=== PATIENT | male | born 1930 | race Caucasian/White ===

== ENCOUNTER 2017-10-03 00:02 | Inpatient (IN) | payer OTHER, MEDICARE ==
[2017-10-03] MEDS ORDERED: MORPHINE SULFATE 10 MG/ML INJ IV ONE (00:17)
[2017-10-03] MEDS ORDERED: NORMAL SALINE 1000 ML 1,000 ML IV ONE (00:17)
[2017-10-03] MEDS ORDERED: ONDANSETRON HCL INJ/PF 4 MG/2 ML SDV IV ONE (00:17)
--- NOTE | 2017-10-03 00:18 | ER Document Report ---
ED GI/ - General Stated Complaint: NAUSEA,VOMITING Time Seen by Provider: 10/03/17 00:09 Notes: Patient is an 87-year-old male that comes by EMS from long-term care facility for chief complaint of swelling of the abdomen and vomiting. He states that he had not had a bowel movement recently, he was given stool softener and an enema by the facility and he had a small amount of bowel movement this afternoon as a result, he states however then he became very nauseated and vomited multiple times. He states he is not in a lot of pain right now but he still feels very nauseated. He denies fever. He denies blood in stool or vomit. He states he has had an appendectomy but denies any other abdominal surgeries. No history of bowel obstruction. - Related Data Allergies/Adverse Reactions: No Known Allergies Allergy (Unverified 10/03/17 00:25) Past Medical History - General Information source: Patient - Social History Smoking Status: Never Smoker Frequency of alcohol use: None Drug Abuse: None Lives with: [facility] Family History: Reviewed & Not Pertinent - Past Medical History Cardiac Medical History: Reports: Hx Atrial Fibrillation Renal/ Medical History: Reports: Hx Benign Prostatic Hyperplasia GI Medical History: Reports: Hx Gastroesophageal Reflux Disease Musculoskeltal Medical History: Reports Hx Arthritis, Reports Hx Musculoskeletal Deformity Infectious Medical History: Reports: Hx C-Diff Past Surgical History: Reports: Hx Appendectomy - Immunizations Hx Diphtheria, Pertussis, Tetanus Vaccination: Yes Review of Systems - Review of Systems Constitutional: No symptoms reported EENT: No symptoms reported Cardiovascular: No symptoms reported Respiratory: No symptoms reported Gastrointestinal: See HPI Genitourinary: No symptoms reported Male Genitourinary: No symptoms reported Musculoskeletal: No symptoms reported Skin: No symptoms reported Hematologic/Lymphatic: No symptoms reported Neurological/Psychological: No symptoms reported Physical Exam - Vital signs Vitals: Pulse Ox 95 10/03/17 00:53 - Notes Notes: GENERAL: Alert, interacts well. Patient appears uncomfortable but is not in severe distress HEAD: Normocephalic, atraumatic. EYES: Pupils equal, round, and reactive to light. Extraocular movements intact. ENT: Oral mucosa moist, tongue midline. NECK: Full range of motion. Supple. Trachea midline. LUNGS: Clear to auscultation bilaterally, no wheezes, rales, or rhonchi. No respiratory distress. HEART: Irregularly irregular. No tachycardia. ABDOMEN: Bowel sounds present, however abdomen is distended, there is generalized tenderness with no severe guarding. Right lower abdomen scar. EXTREMITIES: Moves all 4 extremities spontaneously. No edema, normal radial and dorsalis pedis pulses bilaterally. No cyanosis. BACK: no cervical, thoracic, lumbar midline tenderness. No saddle anesthesia, normal distal neurovascular exam. NEUROLOGICAL: Alert and oriented x3. Normal speech. [cranial nerves II through XII grossly intact]. PSYCH: Normal affect, normal mood. SKIN: Warm, dry, normal turgor. Wound VAC in place over the right thigh/ buttock. No noted surrounding erythema, tenderness, or abnormal heat. Course - Re-evaluation Re-evalutation: On initial evaluation patient has distended abdomen, generalized tenderness without rigidity or severe guarding, is alert, conversational, oriented. Vital signs are actually unremarkable. Patient does appear uncomfortable however. There is what appears to be old the urine in his Garcia, initial chemistry showing marked acute renal failure with creatinine greater than 5 and GFR of 10. Medical records are not merged but I was able to view a printout and showed normal creatinine in May of this year. Concern for obstructive uropathy like in the past, decision was made to replace Garcia, after Garcia was removed pus began to drain from the urethral opening, Garcia was placed and a large amount of purulent material began to flow after sensation of a pop/ pressure change with insertion of Garcia. An impressive amount of purulent drainage was expressed, initially 500 cc of pus, still flowing. Leukocytosis at 24,000 with elevation of neutrophils but no bandemia. Urine was initially pulled from the back unfortunately, a new sample was sent and culture. Covering with Zosyn. Acute abdominal series showing possible obstruction, NG tube placed, CAT scan performed, patient is too nauseated to drink contrast, he does feel improved after medications but states he cannot drink it. Performed without contrast to rule out obstructive stone and evaluate the belly. Hyperkalemia medications given. Patient was discussed with Dr. Quintero. CT showing dilation of small and large bowel, questionable ileus versus low- grade obstruction, patient has had a bowel movement earlier today. Called and spoke with Dr. Morris, he states he will consult on the patient. Spoke with Dr. Tapia, nephrology, he recommends admission with antibiotics and he will consult on the patient. Recommends Kayexalate dose. Patient needing additional access which is difficult to get, I placed a 20- gauge long IV in the right mid arm using the ultrasound. He now has two 20- gauge good access points. Spoke with Dr. García, pending admission to the ICU, request family be contacted and given options. 10/03/17 04:20 Spoke with Armida, daughter. She states she is comfortable with patient staying at this hospital, she prefers this, she states she is coming to see the patient now. She confirms that the patient is DNR status. Spoke with Dr. García, patient will be admitted to the ICU. Recommends adding troponin. - Vital Signs Vital signs: Temp Pulse Resp BP Pulse Ox 20 120/55 L 97 10/03/17 05:00 10/03/17 04:33 10/03/17 04:33 - Laboratory Result Diagrams: 10/03/17 00:45 10/03/17 00:45 Laboratory results interpreted by me: 10/03/17 10/03/17 10/03/17 00:45 00:45 00:45 WBC 24.1 H RBC 3.85 L Hgb 10.9 L Hct 33.1 L RDW 15.5 H Plt Count 567 H Seg Neuts % (Manual) 88 H Lymphocytes % (Manual) 7 L Abs Neuts (Manual) 21.2 H Sodium 133.7 L Potassium 6.1 H* Chloride 89 L BUN 61 H Creatinine 5.30 H Est GFR ( Amer) 12 L Est GFR (Non-Af Amer) 10 L Glucose 157 H Magnesium Direct Bilirubin 0.8 H Alkaline Phosphatase 159 H Albumin 3.0 L Urine Protein 100 H Urine Blood SMALL H Urine Nitrite POSITIVE H Ur Leukocyte Esterase LARGE H 10/03/17 10/03/17 00:45 02:30 WBC RBC Hgb Hct RDW Plt Count Seg Neuts % (Manual) Lymphocytes % (Manual) Abs Neuts (Manual) Sodium Potassium Chloride BUN Creatinine Est GFR ( Amer) Est GFR (Non-Af Amer) Glucose Magnesium 2.4 H Direct Bilirubin Alkaline Phosphatase Albumin Urine Protein 100 H Urine Blood MODERATE H Urine Nitrite Ur Leukocyte Esterase LARGE H Critical Care Note - Critical Care Note Total time excluding time spent on procedures (mins): 50 - Acute renal failure, hyperkalemia, obstructive uropathy, urinary tract infection, ileus Comments: Critical care time spent obtaining history from patient, discussions with consultants (nephrology, surgery, internal medicine), development of treatment plan with patient , evaluation of patient's response to treatment, examination of patient, ordering and performing treatments and interventions, ordering and review of laboratory studies, re-evaluation of patient's condition, ordering and review of radiographic studies and review of old charts Discharge - Discharge Clinical Impression: Hyperkalemia Acute renal failure Qualifiers: Acute renal failure type: unspecified Qualified Code(s): N17.9 - Acute kidney failure, unspecified Urinary tract infection Qualifiers: Urinary tract infection type: site unspecified Hematuria presence: without hematuria Qualified Code(s): N39.0 - Urinary tract infection, site not specified Condition: Serious Disposition: ADMITTED INPATIENT Admitting Provider: Hospitalist Unit Admitted: ICU
[2017-10-03 00:57] LABS: HEMATOCRIT 33.1 % (37.9-51.0); HEMOGLOBIN 10.9 g/dL (13.5-17.0); MEAN CORPUSCULAR HEMOGLOBIN 28.2 pg (27.0-33.4); MEAN CORPUSCULAR HGB CONC 32.8 g/dL (32.0-36.0); MEAN CORPUSCULAR VOLUME 86 fl (80-97); PLATELET COUNT 567 10^3/uL (150-450); RED BLOOD COUNT 3.85 10^6/uL (4.35-5.55); RED CELL DISTRIBUTION WIDTH 15.5 % (11.5-14.0); WHITE BLOOD COUNT 24.1 10^3/uL (4.0-10.5)
[2017-10-03 01:09] LABS: ALANINE AMINOTRANSFERASE 45 U/L (21-72); ALKALINE PHOSPHATASE 159 U/L (38-126); ANION GAP 18 (5-19); ASPARTATE AMINO TRANSFERASE 37 U/L (17-59); BILIRUBIN,DIRECT 0.8 mg/dL (0.0-0.4); BILIRUBIN,TOTAL 0.8 mg/dL (0.2-1.3); BLOOD UREA NITROGEN 61 mg/dL (7-20); CALCIUM 9.3 mg/dL (8.4-10.2); CARBON DIOXIDE 27 mmol/L (22-30); CHLORIDE 89 mmol/L (98-107); GLUCOSE 157 mg/dL (75-110); LIPASE 23.7 U/L (23-300); SODIUM 133.7 mmol/L (137-145); TOTAL PROTEIN 6.8 g/dL (6.3-8.2)
[2017-10-03 01:12] LABS: POTASSIUM 6.1 mmol/L (3.6-5.0)
[2017-10-03] MEDS ORDERED: CALCIUM GLUCONATE 1000 MG/10 ML INJ IV ONE (01:13)
[2017-10-03 01:14] LABS: ABSOLUTE LYMPHOCYTES# (MANUAL) 1.7 10^3/uL (0.5-4.7); ABSOLUTE MONOCYTES # (MANUAL) 1.2 10^3/uL (0.1-1.4); ABSOLUTE NEUTROPHILS# (MANUAL) 21.2 10^3/uL (1.7-8.2); BASOPHILS % (MANUAL) 0 % (0-2); EOSINOPHILS % (MANUAL) 0 % (0-6); LYMPHOCYTES % (MANUAL) 7 % (13-45); MONOCYTES % (MANUAL) 5 % (3-13); SEGMENTED NEUTROPHILS % (MAN) 88 % (42-78); TOTAL CELLS COUNTED 100
[2017-10-03] MEDS ORDERED: INSULIN REG, HUMAN 100 UNIT/ML 3 ML VIAL (PYX) IV ONE (01:14)
[2017-10-03] MEDS ORDERED: DEXTROSE 50%-WATER 25 GM/50 ML DISP.SYRIN IV ONE (01:14)
[2017-10-03 01:15] LABS: ANISOCYTOSIS SLIGHT; PLATELET COMMENT INCREASED; TOXIC GRANULATION SLIGHT
[2017-10-03] MEDS ORDERED: LIDOCAINE 1% INJ-PF (10 MG/ML) 30 ML SDV NEB ONE (01:36)
--- NOTE | 2017-10-03 01:37 | RADIOLOGY REPORT (SQ) ---
EXAM DESCRIPTION: US ABDOMEN ANEURYSM SCREENING COMPLETED DATE/TME: 10/03/2017 00:16 CLINICAL HISTORY: 87 years Male, abd distension, vomiting COMPARISON: 3.15.18 NUMBER OF VIEWS/TECHNIQUE: 3 LIMITATIONS: None. FINDINGS: Gaseous small and large bowel dilation includes small bowel stacking and 4.1 cm diameter small bowel. No free air. No suspicious calcification. Grossly intact skeletal structures. Small obscuration-effusion of the left costophrenic angle, chronic. Atherosclerosis. Mildly enlarged cardiac silhouette. Moderate lung volume. Moderate osteoarthritis. IMPRESSION: Small bowel ileus pattern. Differential diagnosis includes small bowel obstruction.
[2017-10-03 01:54] LABS: APPEARANCE,URINE TURBID; BILIRUBIN,URINE NEGATIVE (NEGATIVE); GLUCOSE, URINE NEGATIVE (NEGATIVE); KETONES,URINE NEGATIVE (NEGATIVE); LEUKOCYTE ESTERASE,URINE LARGE (NEGATIVE); NITRITE,URINE POSITIVE (NEGATIVE); PROTEIN,URINE 100 mg/dL (NEGATIVE); TRIPLE PHOSPHATE CRYSTAL,URINE MODERATE /HPF; URINE SPECIFIC GRAVITY 1.011; UROBILINOGEN,URINE NEGATIVE mg/dL (<2.0)
[2017-10-03 01:55] LABS: COLOR,URINE YELLOW
[2017-10-03] MEDS ORDERED: CEFTRIAXONE INJ 1000 MG VIAL IV ONE (02:33)
[2017-10-03] MEDS ORDERED: PIPERACILLIN/TAZOBACTAM 3.375 GM VIAL IV ONE (02:35)
[2017-10-03 03:10] LABS: APPEARANCE,URINE TURBID; BILIRUBIN,URINE NEGATIVE (NEGATIVE); COLOR,URINE YELLOW; GLUCOSE, URINE NEGATIVE (NEGATIVE); KETONES,URINE NEGATIVE (NEGATIVE); LEUKOCYTE ESTERASE,URINE LARGE (NEGATIVE); NITRITE,URINE NEGATIVE (NEGATIVE); PROTEIN,URINE 100 mg/dL (NEGATIVE); UROBILINOGEN,URINE NEGATIVE mg/dL (<2.0)
--- NOTE | 2017-10-03 03:21 | RADIOLOGY REPORT (SQ) ---
EXAM DESCRIPTION: CT ABDOMEN PELVIS WITHOUT IV CONTRAST CLINICAL HISTORY: 87 years Male, abd distension, kidney failure, ? obstruction Comparison: None. Technique: No contrast. Coronal and sagittal reformat. This exam was performed according to our departmental dose-optimization program, which includes automated exposure control, adjustment of the mA and/or kV according to patient size and/or use of iterative reconstruction technique.[facility]: Dose Right [facility]: CareDose [facility]: Dose Right [facility]: Teradose 4D [facility]: QuNano LIMITATIONS: None Findings: Moderate distention of the small and large bowel with possible transition zone at the splenic flexure. 3.5 cm diameter small bowel. Air-fluid levels. No free fluid. No free air. Small right basilar atelectasis-pneumonia. Calcified granuloma left lung base. Small bilateral pleural effusions. Atherosclerosis. Small calcified granulomata. Mild bilateral perinephric fat stranding. Garcia catheter. Moderate right inguinal fat only hernia. Lobulated hepatic contour which may indicate cirrhosis.Bone demineralization. Unenhanced lower thorax, abdominopelvic structures, and musculoskeleton appear otherwise grossly intact. Impression: 1. Moderate small and large bowel dilation with air-fluid levels. Differential diagnosis includes ileus and low-grade obstruction. 2. Small right basilar atelectasis-pneumonia.
[2017-10-03] MEDS ORDERED: NORMAL SALINE 1000 ML 1,000 ML IV PRN ×2 (03:31→09:59)
--- NOTE | 2017-10-03 03:51 | RADIOLOGY REPORT (SQ) ---
EXAM DESCRIPTION: XR CHEST 1 VIEW COMPLETED DATE/TME: 10/03/2017 03:29 CLINICAL HISTORY: 87 years Male, NG tube placement COMPARISON: CT, same day NUMBER OF VIEWS/TECHNIQUE: 1/AP FINDINGS: Enteric tube tip at the left upper abdominal quadrant, dilated bowel partially imaged, left basilar calcified granuloma, mildly enlarged cardiac silhouette. IMPRESSION: Enteric tube. Dilated bowel.
[2017-10-03] MEDS ORDERED: MAGNESIUM HYDROXIDE SUSP 30 ML UDCUP PO PRN (04:33)
[2017-10-03] MEDS ORDERED: ACETAMINOPHEN 650 MG SUPP.RECT PR PRN (04:33)
[2017-10-03] MEDS ORDERED: MAG HYDROX/AL HYDROX/SIMETH SUSP 30 ML UDCUP PO PRN (04:33)
[2017-10-03] MEDS ORDERED: IPRATROPIUM/ALBUTEROL 0.5-2.5 MG/3 ML AMPUL NEB ONE (04:45)
[2017-10-03] MEDS ORDERED: SODIUM POLYSTYRENE SULFONATE 15 GM/60 ML PO ONE (05:48)
[2017-10-03 06:55] LABS: ANION GAP 14 (5-19); BLOOD UREA NITROGEN 65 mg/dL (7-20); CARBON DIOXIDE 27 mmol/L (22-30); CHLORIDE 93 mmol/L (98-107); CREATINE KINASE 26 U/L (55-170); GLUCOSE 129 mg/dL (75-110); SODIUM 134.2 mmol/L (137-145)
--- NOTE | 2017-10-03 06:57 | PDOC H&P ---
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 Patient presents from nursing facility with complaints of abdominal distention nausea and vomiting. In the emergency room is found to have acute renal failure, abdominal distention and an empty Garcia, NG tube was placed to intermittent suction resulting in greater than 500 mL of aspiration, Garcia replacement results in drainage of greater than [address] abdomen and pelvis suggests pyelonephritis without hydronephrosis. He started on empiric antibiotics IV fluids and referred to the hospitalist for admission. He admits previous episode, he denies chest pain. He is unaware of his current medication regimen. Past Medical History Cardiac Medical History: Reports: Atrial Fibrillation, Hyperlipidema GI Medical History: Reports: Gastroesophageal Reflux Disease Musculoskeltal Medical History: Reports: Arthritis Infectious Medical History: Reports: Clostridium Difficile Past Surgical History Past Surgical History: Reports: Appendectomy Social History Information Source: [facility] Records Lives with: [facility] Smoking Status: Never Smoker Frequency of Alcohol Use: None Drugs: None - Advance Directive Resuscitation Status: Do Not Resuscitate Family History Family History: Hypertension Parental Family History Reviewed: Yes Children Family History Reviewed: Yes Sibling(s) Family History Reviewed.: Yes Medication/Allergy Allergies/Adverse Reactions: No Known Allergies Allergy (Unverified 10/03/17 00:25) Review of Systems Constitutional: PRESENT: as per HPI, anorexia, fatigue, weakness. ABSENT: chills, fever(s), headache(s), weight gain, weight loss Eyes: ABSENT: visual disturbances Ears: ABSENT: hearing changes Cardiovascular: ABSENT: chest pain, dyspnea on exertion, edema, orthropnea, palpitations Respiratory: ABSENT: cough, hemoptysis Gastrointestinal: PRESENT: as per HPI, abdominal pain, nausea, vomiting. ABSENT : constipation, diarrhea, hematemesis, hematochezia Genitourinary: ABSENT: dysuria, hematuria Musculoskeletal: ABSENT: joint swelling Integumentary: ABSENT: rash, wounds Neurological: ABSENT: abnormal gait, abnormal speech, confusion, dizziness, focal weakness, syncope Psychiatric: ABSENT: anxiety, depression, homidical ideation, suicidal ideation Endocrine: ABSENT: cold intolerance, heat intolerance, polydipsia, polyuria Hematologic/Lymphatic: ABSENT: easy bleeding, easy bruising Physical Exam Vital Signs: Temp Pulse Resp BP Pulse Ox 110 H 20 120/55 L 97 10/03/17 06:27 10/03/17 05:00 10/03/17 04:33 10/03/17 04:33 Intake & Output 10/01/17 10/02/17 10/03/17 11:59 11:59 11:59 Intake Total 650 Output Total 250 Balance 400 Weight 100.6 kg General appearance: PRESENT: cooperative, obese, severe distress Head exam: PRESENT: atraumatic, normocephalic Eye exam: PRESENT: conjunctiva pink, EOMI, PERRLA. ABSENT: scleral icterus Ear exam: PRESENT: normal external ear exam Mouth exam: PRESENT: dry mucosa, neck supple, tongue midline. ABSENT: moist Neck exam: ABSENT: carotid bruit, JVD, lymphadenopathy, thyromegaly Respiratory exam: PRESENT: clear to auscultation jose. ABSENT: rales, rhonchi, wheezes Cardiovascular exam: PRESENT: irregular rhythm. ABSENT: diastolic murmur, rubs , systolic murmur Pulses: PRESENT: normal dorsalis pedis pul Vascular exam: PRESENT: normal capillary refill GI/Abdominal exam: PRESENT: distended, hypoactive bowel sounds, soft, tenderness. ABSENT: rigid Rectal exam: PRESENT: deferred Extremities exam: PRESENT: full ROM. ABSENT: calf tenderness, clubbing, pedal edema Neurological exam: PRESENT: alert, awake, oriented to person, oriented to place , oriented to time, oriented to situation, CN II-XII grossly intact. ABSENT: motor sensory deficit Psychiatric exam: PRESENT: appropriate affect, normal mood. ABSENT: homicidal ideation, suicidal ideation Skin exam: PRESENT: dry, intact, warm, other - 3 x 3 cm stage IV sacral decubiti with necrotic exudate. ABSENT: cyanosis, rash Results Impressions: Acute Abdomen Series 10/03/17 00:16 IMPRESSION: Small bowel ileus pattern. Differential diagnosis includes small bowel obstruction. Chest X-Ray 10/03/17 03:29 IMPRESSION: Enteric tube. Dilated bowel. Assessment & Plan - Diagnosis (1) Pyelonephritis Is this a current diagnosis for this admission?: Yes Plan: Secondary to distal obstructive uropathy, urology consultation, empiric antibiotics, follow-up blood and urine culture (2) Obstructive uropathy Is this a current diagnosis for this admission?: Yes Plan: Urology consultation (3) Sacral decubitus ulcer, stage IV Is this a current diagnosis for this admission?: Yes Plan: Surgical consultation (4) Ileus Is this a current diagnosis for this admission?: Yes Plan: Secondary to #1, NG tube to intermittent suction, (5) Acute renal failure Qualifiers: Acute renal failure type: unspecified Qualified Code(s): N17.9 - Acute kidney failure, unspecified Is this a current diagnosis for this admission?: Yes Plan: Secondary to #1, avoid nephrotoxic meds and doses, IV fluid challenge, follow- up chemistry and nephrology consultation (6) Hyperkalemia Is this a current diagnosis for this admission?: Yes Plan: With peaked T waves, challenge IV fluid, reevaluate chemistry - Time Time Spent: 50 to 70 Minutes - Inpatient Certification Medical Necessity: Need Close Monitoring Due to Risk of Patient Decompensation
[2017-10-03] MEDS ORDERED: SODIUM POLYSTYRENE SULFONATE 15 GM/60 ML ONE (06:58)
[2017-10-03] MEDS: HEPARIN SOD (PORCINE) 5,000 UNIT/ML 1 ML SYRINGE SUBCUT SCH ×3 (06:59→21:57)
[2017-10-03 07:00] LABS: CREATINE KINASE MB 1.49 ng/mL (<4.55)
[2017-10-03 07:01] LABS: TROPONIN I < 0.012 ng/mL
[2017-10-03] MEDS: IPRATROPIUM/ALBUTEROL 0.5-2.5 MG/3 ML AMPUL NEB SCH ×3 (08:49→19:49)
[2017-10-03] MEDS ORDERED: CEFTRIAXONE 1 GM/D5W RTU 1 GM/50 ML RTUPB IV SCH (10:00)
--- NOTE | 2017-10-03 10:02 | PDOC CONSULTATION ---
Consultation Consult Date: 10/03/17 Consult reason:: AK I in the setting of obstructive uropathy. History of Present Illness Admission Date/PCP: 10/03/17 04:33 KRIILL RUBIN DO History of Present Illness: LAUREN CARTER is a 87 year old maleWith a history of prostatic hypertrophy and obstructive uropathy with chronic indwelling Garcia catheter [facility] was brought in with complaints of abdominal distention with nausea and vomiting.He denies any history of fever or chills. Evaluations have revealed that he had an obstructive Garcia catheter and after flushing the catheter 500 cc of purulent material came out.He denies any history of abdominal pains. CT scan done of his abdomen shows he has ileus and possible pyelonephritis.He has an NG tube placed and begun on IV antibiotics along with IV fluids.Currently he says he is feeling generally better. His Garcia bag shows still purulent material but according to the treating nurse it is clearing. Labs and medications were reviewed. His creatinine on admission was 5.8 and now is down to 4.3. His other baseline medical problems includes atrial fibrillation, stage IV sacral decubitus ulcer and GERD. Past Medical History Cardiac Medical History: Reports: Atrial Fibrillation, Hyperlipidemia Renal/ Medical History: Reports: Benign Prostatic Hyperplasia GI Medical History: Reports: Gastroesophageal Reflux Disease Musculoskeltal Medical History: Reports: Arthritis Infectious Medical History: Reports: Clostridium Difficile Past Surgical History Past Surgical History: Reports: Appendectomy Social History Lives with: [facility] Smoking Status: Never Smoker Frequency of Alcohol Use: None Drugs: None - Advance Directive Resuscitation Status: Do Not Resuscitate Family History Parental Family History Reviewed: No Children Family History Reviewed: No Sibling(s) Family History Reviewed.: No Medication/Allergy Allergies/Adverse Reactions: No Known Allergies Allergy (Unverified 10/03/17 00:25) Review of Systems Constitutional: PRESENT: anorexia, weakness. ABSENT: chills, fever(s), headache (s), night sweats Nose, Mouth, and Throat: ABSENT: mouth pain, sore throat Cardiovascular: ABSENT: chest pain, dyspnea on exertion, edema, orthropnea, palpitations Respiratory: ABSENT: dyspnea, hemoptysis Gastrointestinal: PRESENT: constipation, nausea, vomiting. ABSENT: abdominal pain, coffee ground emesis, diarrhea, dysphagia, heartburn Integumentary: ABSENT: lesions, pruritus Neurological: ABSENT: abnormal movements, confusion, convulsions, focal weakness Hematologic/Lymphatic: ABSENT: easy bruising, lymphadenopathy Physical Exam Vital Signs: Temp Pulse Resp BP Pulse Ox 97.5 F 85 20 110/53 L 100 10/03/17 08:00 10/03/17 08:49 10/03/17 08:49 10/03/17 08:00 10/03/17 08:49 Intake & Output 10/02/17 10/03/17 10/04/17 06:59 06:59 06:59 Intake Total 650 Output Total 150 175 Balance 500 -175 Weight 100.6 kg General appearance: PRESENT: no acute distress Eye exam: PRESENT: conjunctiva pink, EOMI, PERRLA Ear exam: PRESENT: normal external ear exam Mouth exam: PRESENT: neck supple. ABSENT: moist Neck exam: ABSENT: lymphadenopathy, meningismus, tenderness, thyromegaly, tracheal deviation Respiratory exam: PRESENT: clear to auscultation jose. ABSENT: crackles, rhonchi Cardiovascular exam: PRESENT: +S1, +S2 GI/Abdominal exam: PRESENT: normal bowel sounds, soft. ABSENT: organomegaly, tenderness Extremities exam: ABSENT: calf tenderness, clubbing, pedal edema Neurological exam: PRESENT: alert, awake, oriented to person, oriented to place , oriented to time Psychiatric exam: PRESENT: appropriate affect Skin exam: PRESENT: dry. ABSENT: cyanosis, erythema, mottled Results Laboratory Results: 10/03/17 06:25 10/03/17 10/03/17 06:25 06:25 Sodium 134.2 L Potassium 5.0 D Chloride 93 L Carbon Dioxide 27 Anion Gap 14 BUN 65 H Creatinine 4.89 H Est GFR ( Amer) 14 L Est GFR (Non-Af Amer) 11 L Glucose 129 H Lactic Acid 1.4 Calcium 9.0 10/03/17 10/03/17 06:25 06:25 Creatine Kinase 26 L CK-MB (CK-2) 1.49 Troponin I < 0.012 Impressions: Acute Abdomen Series 10/03/17 00:16 IMPRESSION: Small bowel ileus pattern. Differential diagnosis includes small bowel obstruction. Chest X-Ray 10/03/17 03:29 IMPRESSION: Enteric tube. Dilated bowel. Assessment & Plan - Diagnosis (1) Acute renal failure Qualifiers: Acute renal failure type: unspecified Qualified Code(s): N17.9 - Acute kidney failure, unspecified Is this a current diagnosis for this admission?: Yes Plan: in the face of obstructive uropathy with severe UTI/possible pyelonephritis. Patient has had a Garcia catheter flushed and has produced purulent material. Discussed with treating nurse to do bladder washes 2 every 6 hours.Continue on IV fluids but cut down the rate from 500 cc to 20 cc for 2 bags and then adjust the rate accordingly. I am unavailable till Friday. (2) Hyperkalemia Is this a current diagnosis for this admission?: Yes Plan: Responded to conservative management. Monitor. (3) Ileus Is this a current diagnosis for this admission?: Yes Plan: Currently has an NG tube. Further management as per hospitalist. (4) Obstructive uropathy Is this a current diagnosis for this admission?: Yes (5) Pyelonephritis Is this a current diagnosis for this admission?: Yes Plan: Possible. On IV antibiotics. Patient presently compensated. Hemodynamically stable. Continue present treatment along with intermittent bladder irrigation and washes. (6) Sacral decubitus ulcer, stage IV Is this a current diagnosis for this admission?: Yes Plan: As per hospitalist. (7) Urinary tract infection Qualifiers: Urinary tract infection type: site unspecified Hematuria presence: without hematuria Qualified Code(s): N39.0 - Urinary tract infection, site not specified Plan: On IV antibiotics. Monitor. Follow up on cultures. (8) Anemia Plan: Needs evaluation.
[2017-10-03] MEDS: DOCUSATE SODIUM 100 MG CAPSULE PO SCH (10:39)
[2017-10-03] MEDS ORDERED: PIPERACILLIN SODIUM/TAZOBACTAM 2.25 GM in NORMAL SALINE 50 ML IV SCH (12:00)
[2017-10-03] MEDS ORDERED: CEFTRIAXONE SODIUM 1,000 MG in DEXTROSE 5%-WATER 50 ML IV SCH (12:00)
--- NOTE | 2017-10-03 12:35 | PDOC CONSULTATION ---
Consultation Consult Date: 10/03/17 Attending physician:: MEE ODONNELL Consult reason:: obstruction History of Present Illness Admission Date/PCP: 10/03/17 04:33 KIRILL RUBIN DO History of Present Illness: LAUREN CARTER is a 87 year old male Past Medical History Cardiac Medical History: Reports: Atrial Fibrillation, Hyperlipidema GI Medical History: Reports: Gastroesophageal Reflux Disease Musculoskeltal Medical History: Reports: Arthritis Infectious Medical History: Reports: Clostridium Difficile Past Surgical History Past Surgical History: Reports: Appendectomy Social History Lives with: [facility] Smoking Status: Never Smoker Frequency of Alcohol Use: None Drugs: None - Advance Directive Resuscitation Status: Do Not Resuscitate Family History Family History: Hypertension Parental Family History Reviewed: No Children Family History Reviewed: No Sibling(s) Family History Reviewed.: No Medication/Allergy Allergies/Adverse Reactions: No Known Allergies Allergy (Unverified 10/03/17 00:25) Physical Exam Vital Signs: Temp Pulse Resp BP Pulse Ox 97.5 F 93 18 107/45 L 96 10/03/17 08:00 10/03/17 10:00 10/03/17 10:00 10/03/17 10:00 10/03/17 10:00 Intake & Output 10/02/17 10/03/17 10/04/17 06:59 06:59 06:59 Intake Total 650 Output Total 150 425 Balance 500 -425 Weight 100.6 kg Results Laboratory Results: 10/03/17 06:25 10/03/17 10/03/17 06:25 06:25 Sodium 134.2 L Potassium 5.0 D Chloride 93 L Carbon Dioxide 27 Anion Gap 14 BUN 65 H Creatinine 4.89 H Est GFR ( Amer) 14 L Est GFR (Non-Af Amer) 11 L Glucose 129 H Lactic Acid 1.4 Calcium 9.0 10/03/17 10/03/17 06:25 06:25 Creatine Kinase 26 L CK-MB (CK-2) 1.49 Troponin I < 0.012 Impressions: Acute Abdomen Series 10/03/17 00:16 IMPRESSION: Small bowel ileus pattern. Differential diagnosis includes small bowel obstruction. Chest X-Ray 10/03/17 03:29 IMPRESSION: Enteric tube. Dilated bowel. Assessment & Plan - Diagnosis (1) Pyelonephritis Is this a current diagnosis for this admission?: Yes Plan: i reviewed the CT and the blood work, also examined and interviewed the patient ; there is primary kidney disease, no evidence of obstruction by CT, the severino catheter is draining clear urine. the best way to treat urine retention for this patient is to do intermittent catheterization . apply bacitracin bid at tip of the penis
[2017-10-03 15:00] LABS: ANION GAP 11 (5-19); BLOOD UREA NITROGEN 63 mg/dL (7-20); CALCIUM 8.7 mg/dL (8.4-10.2); CARBON DIOXIDE 30 mmol/L (22-30); CHLORIDE 96 mmol/L (98-107); GLUCOSE 127 mg/dL (75-110); POTASSIUM 4.3 mmol/L (3.6-5.0); SODIUM 137.2 mmol/L (137-145)
[2017-10-03 15:13] LABS: CREATINE KINASE MB 1.87 ng/mL (<4.55)
[2017-10-03 15:16] LABS: TROPONIN I < 0.012 ng/mL
[2017-10-03] MEDS: NORMAL SALINE 1000 ML 1,000 ML IV PRN ×2 (16:05→18:18)
[2017-10-03] MEDS: MORPHINE SULFATE 10 MG/ML INJ IV PRN ×3 (16:05→23:02)
[2017-10-03] MEDS: CEFTRIAXONE SODIUM 1,000 MG in DEXTROSE 5%-WATER 50 ML IV SCH (17:31)
--- NOTE | 2017-10-03 21:44 | EKG REPORT ---
SEVERITY:- ABNORMAL ECG - ATRIAL FIBRILLATION, V-RATE 71-76 ABNRM R PROG, CONSIDER ASMI OR LEAD PLACEMENT BORDERLINE T ABNORMALITIES, INFERIOR LEADS : Confirmed by: Yanna Frazier MD 03-Oct-2017 21:44:04
--- NOTE | 2017-10-03 21:44 | EKG REPORT ---
SEVERITY:- ABNORMAL ECG - ATRIAL FIBRILLATION, V-RATE 74-100 ABNRM R PROG, CONSIDER ASMI OR LEAD PLACEMENT BORDERLINE T ABNORMALITIES, INFERIOR LEADS : Confirmed by: Yanna Frazier MD 03-Oct-2017 21:44:17
[2017-10-03 22:35] LABS: ANION GAP 13 (5-19); BLOOD UREA NITROGEN 61 mg/dL (7-20); CALCIUM 8.4 mg/dL (8.4-10.2); CARBON DIOXIDE 26 mmol/L (22-30); CHLORIDE 98 mmol/L (98-107); GLUCOSE 150 mg/dL (75-110); POTASSIUM 4.6 mmol/L (3.6-5.0); SODIUM 136.5 mmol/L (137-145)
[2017-10-03 22:46] LABS: CREATINE KINASE MB 2.58 ng/mL (<4.55)
[2017-10-03 22:52] LABS: TROPONIN I < 0.012 ng/mL
[2017-10-04] MEDS: NORMAL SALINE 1000 ML 1,000 ML IV PRN (00:14)
[2017-10-04] MEDS: IPRATROPIUM/ALBUTEROL 0.5-2.5 MG/3 ML AMPUL NEB SCH ×4 (02:36→19:58)
[2017-10-04] MEDS: HEPARIN SOD (PORCINE) 5,000 UNIT/ML 1 ML SYRINGE SUBCUT SCH ×3 (05:16→21:32)
[2017-10-04] MEDS: DOCUSATE SODIUM 100 MG CAPSULE PO SCH (09:14)
[2017-10-04] MEDS: MORPHINE SULFATE 10 MG/ML INJ IV PRN ×2 (09:22→20:02)
[2017-10-04] MEDS: DEXTROSE 5%-NORMAL SALINE 1,000 ML IV PRN ×2 (10:57→22:55)
--- NOTE | 2017-10-04 12:55 | PROGRESS NOTE E ---
Progress Note NAME: LAUREN CARTER : 1930 AGE: 87Y DATE: 10/04/2017 ROOM: 314 SUBJECTIVE: The patient is a pleasant 87-year-old male who has a history of benign prostatic hyperplasia, admitted with obstructive uropathy, he had a Nascimento catheter, atrial fibrillation with stage IV sacral decubiti, and bed bound. The patient was sent from nursing facility because of urinary retention, nausea, vomiting. He was found to have acute renal failure, abdominal distention, *------* Nascimento drained around 500 mL. The patient was started with gentle hydration and IV antibiotics. He is feeling much better today. His kidney function is better and his abdominal distention is better. OBJECTIVE: GENERAL: Patient is lying in bed comfortable, not in distress. VITAL SIGNS: Temperature 97.4, heart rate 81, respiratory rate 18, blood pressure 121/48. HEENT: Head is normocephalic, atraumatic. Pupils round, reactive to the light and accommodation bilaterally. Extraocular movements intact. Ears: Tympanic membranes are intact bilaterally. No discharge from the ears. No discharge from the nose. NECK: Supple. No increased JVD. No thyromegaly. No lymphadenopathy. CARDIOVASCULAR: Normal S1, S2. Regular rate and rhythm. No murmur. No gallop. RESPIRATORY: Lungs clear. ABDOMEN: Soft, nontender. MUSCULOSKELETAL: No edema. NEUROLOGIC: Awake, alert. SKIN: No rash. LABORATORY STUDIES: White blood count is 24, hemoglobin 11. Sodium 134, potassium 5.0, creatinine 4.9; it was 5.3. ASSESSMENT AND PLAN: 1. ACUTE RENAL FAILURE WITH CKD STAGE 3 SECONDARY TO OBSTRUCTIVE UROPATHY AND DEHYDRATION, IMPROVING. 2. OBSTRUCTIVE UROPATHY SECONDARY TO BENIGN PROSTATIC HYPERPLASIA, NASCIMENTO IN PLACE. 3. SACRAL DECUBITUS ULCER, STAGE IV. 4. URINARY TRACT INFECTION/PYELONEPHRITIS. 5. ILEUS, IMPROVING. PLAN: 1. Continue IV fluids. 2. Continue antibiotic ceftriaxone. 3. We will keep NG tube for another day. 4. Repeat abdominal/chest x-ray tomorrow morning. MEDICAL NECESSITY: IV fluids, and IV antibiotic. DICTATING PHYSICIAN: JANY BRAGA M.D. [id number] PHY#: [id number] ID: [id number] JOB#: [id number] ACCT: [id number] cc: > SHANEL
[2017-10-04] MEDS: CEFTRIAXONE SODIUM 1,000 MG in DEXTROSE 5%-WATER 50 ML IV SCH (17:39)
[2017-10-05] MEDS: IPRATROPIUM/ALBUTEROL 0.5-2.5 MG/3 ML AMPUL NEB SCH ×4 (02:36→19:57)
[2017-10-05 05:19] LABS: ABSOLUTE BASOPHILS # (AUTO) 0.2 10^3/uL (0.0-0.2); ABSOLUTE EOSINOPHILS # (AUTO) 0.7 10^3/uL (0.0-0.6); ABSOLUTE LYMPHOCYTES (AUTO) 2.7 10^3/uL (0.5-4.7); ABSOLUTE MONOCYTES (AUTO) 1.4 10^3/uL (0.1-1.4); ABSOLUTE NEUT (AUTO) 10.3 10^3/uL (1.7-8.2); BASOPHILS % (AUTO) 1.1 % (0-2); EOSINOPHILS % (AUTO) 4.5 % (0-6); HEMATOCRIT 28.9 % (37.9-51.0); HEMOGLOBIN 9.5 g/dL (13.5-17.0); LYMPHOCYTES % (AUTO) 17.7 % (13-45); MEAN CORPUSCULAR HEMOGLOBIN 28.4 pg (27.0-33.4); MEAN CORPUSCULAR HGB CONC 32.9 g/dL (32.0-36.0); MEAN CORPUSCULAR VOLUME 86 fl (80-97); MONOCYTES % (AUTO) 9.2 % (3-13); PLATELET COUNT 543 10^3/uL (150-450); RED BLOOD COUNT 3.35 10^6/uL (4.35-5.55); RED CELL DISTRIBUTION WIDTH 15.2 % (11.5-14.0); SEGMENTED NEUTROPHILS % (AUTO) 67.5 % (42-78); TOTAL CELLS COUNTED % (AUTO) 100 %; WHITE BLOOD COUNT 15.3 10^3/uL (4.0-10.5)
[2017-10-05] MEDS: HEPARIN SOD (PORCINE) 5,000 UNIT/ML 1 ML SYRINGE SUBCUT SCH ×3 (05:23→21:07)
[2017-10-05 05:53] LABS: ALBUMIN 2.2 g/dL (3.5-5.0); ANION GAP 9 (5-19); BLOOD UREA NITROGEN 40 mg/dL (7-20); CALCIUM 8.1 mg/dL (8.4-10.2); CARBON DIOXIDE 27 mmol/L (22-30); CHLORIDE 104 mmol/L (98-107); GLUCOSE 94 mg/dL (75-110); PHOSPHORUS 3.3 mg/dL (2.5-4.5); POTASSIUM 3.4 mmol/L (3.6-5.0); SODIUM 139.9 mmol/L (137-145)
[2017-10-05] MEDS: DEXTROSE 5%-NORMAL SALINE 1,000 ML IV PRN ×2 (07:49→17:39)
--- NOTE | 2017-10-05 08:43 | RADIOLOGY REPORT (SQ) ---
EXAM DESCRIPTION: ABDOMEN 2 VIEWS COMPLETED DATE/TIME: 10/05/2017 8:26 am REASON FOR STUDY: Abdominal pain COMPARISON: 10/03/2017. NUMBER OF VIEWS: Two views. TECHNIQUE: Supine and erect/decubitus radiographic images of the abdomen acquired. LIMITATIONS: None. FINDINGS: FREE AIR: None. No abnormal gas collections. LUNG BASES: Diminished aeration left lung base. BOWEL GAS PATTERN: Mild gaseous distension, slightly improved compared to prior. Relatively nonobstr uctive but nonspecific pattern. CALCIFICATIONS: Phleboliths in the pelvis. SOFT TISSUES: No gross mass. HARDWARE: Garcia catheter in place. BONES: No acute fracture. No worrisome bone lesions. OTHER: No other significant finding. IMPRESSION: 1. Slightly improved gaseous distention in the abdomen. 2. Worsening aeration left low er lobe. TECHNICAL DOCUMENTATION: JOB ID: [id number] [employer]- All Rights Reserved Reading location - IP/workstation name: [email or web address]
[2017-10-05] MEDS: DOCUSATE SODIUM 100 MG CAPSULE PO SCH (11:24)
--- NOTE | 2017-10-05 11:45 | PROGRESS NOTE E ---
Progress Note NAME: LAUREN CARTER : 1930 AGE: 87Y DATE: 10/05/2017 ROOM: 314 SUBJECTIVE: The patient is a pleasant 87-year-old male who has a history of benign prostatic hyperplasia, admitted with obstructive uropathy, sepsis and atrial fibrillation with stage IV decubitus ulcer. Patient also has acute renal failure secondary to obstructive uropathy. He is improving today. He was found to have also small bowel obstruction and NG tube was placed. The patient removed NG tube yesterday/last night. Repeat chest x-ray showed improvement of ileus. Patient is doing better today. Slightly confused. OBJECTIVE: GENERAL: Patient is lying in bed comfortable, not in distress. VITAL SIGNS: Blood pressure 142/65, temperature 97.4, heart rate 85, respiratory rate 16, saturation 97%. HEENT: Head is normocephalic, atraumatic. Pupils round, reactive to the light and accommodation bilaterally. Extraocular movements intact. Ears: Tympanic membranes are intact bilaterally. No discharge from the ears. No discharge from the nose. NECK: Supple. No increased JVD. No thyromegaly. No lymphadenopathy. CARDIOVASCULAR: Normal S1, S2. Regular rate and rhythm. No murmur. No gallop. RESPIRATORY: Lungs clear. ABDOMEN: Soft. MUSCULOSKELETAL: No edema. NEUROLOGIC: Awake, alert. SKIN: No rash. LABORATORY STUDIES: White blood count is 15.3, hemoglobin 9.5, hematocrit 28.9. Sodium 139, potassium 3.4, creatinine 1.6. ASSESSMENT AND PLAN: 1. ACUTE RENAL FAILURE WITH CKD STAGE III SECONDARY TO OBSTRUCTIVE UROPATHY, RESOLVING. Creatinine is 1.3. 2. OBSTRUCTIVE UROPATHY SECONDARY TO BENIGN PROSTATIC HYPERPLASIA, NASCIMENTO IN PLACE. 3. URINARY TRACT INFECTION/PYELONEPHRITIS. On antibiotics. 4. SACRAL DECUBITUS ULCER, STAGE IV. 5. ILEUS, IMPROVING. PLAN: 1. Continue IV fluids. Will decrease the rate. 2. Continue antibiotic ceftriaxone 1 g IV daily. 3. The NG tube was removed by the patient. Will keep the NG tube out. 4. Liquid diet. Repeat chest x-ray showed improvement of ileus. 5. Put him also on Flomax and remove the Nascimento catheter and voiding trial. DISPOSITION: Back to care home probably Friday or [place]. DICTATING PHYSICIAN: JANY BRAGA M.D. [id number] PHY#: [id number] ID: [id number] JOB#: [id number] ACCT: [id number] cc: > MTDD
[2017-10-05] MEDS: CEFTRIAXONE SODIUM 1,000 MG in DEXTROSE 5%-WATER 50 ML IV SCH (17:39)
[2017-10-05] MEDS ORDERED: DEXTROSE 5%-NORMAL SALINE 1,000 ML IV PRN (20:03)
[2017-10-06] MEDS ORDERED: TEMAZEPAM 7.5 MG CAPSULE PO PRN (01:15)
[2017-10-06] MEDS: IPRATROPIUM/ALBUTEROL 0.5-2.5 MG/3 ML AMPUL NEB SCH ×2 (01:38→08:27)
[2017-10-06 05:32] LABS: ABSOLUTE BASOPHILS # (AUTO) 0.2 10^3/uL (0.0-0.2); ABSOLUTE EOSINOPHILS # (AUTO) 0.4 10^3/uL (0.0-0.6); ABSOLUTE LYMPHOCYTES (AUTO) 2.5 10^3/uL (0.5-4.7); ABSOLUTE MONOCYTES (AUTO) 1.3 10^3/uL (0.1-1.4); ABSOLUTE NEUT (AUTO) 9.6 10^3/uL (1.7-8.2); BASOPHILS % (AUTO) 1.1 % (0-2); EOSINOPHILS % (AUTO) 2.9 % (0-6); HEMATOCRIT 29.4 % (37.9-51.0); HEMOGLOBIN 9.6 g/dL (13.5-17.0); LYMPHOCYTES % (AUTO) 17.6 % (13-45); MEAN CORPUSCULAR HEMOGLOBIN 28.3 pg (27.0-33.4); MEAN CORPUSCULAR HGB CONC 32.5 g/dL (32.0-36.0); MEAN CORPUSCULAR VOLUME 87 fl (80-97); MONOCYTES % (AUTO) 9.6 % (3-13); PLATELET COUNT 483 10^3/uL (150-450); RED BLOOD COUNT 3.37 10^6/uL (4.35-5.55); RED CELL DISTRIBUTION WIDTH 15.2 % (11.5-14.0); SEGMENTED NEUTROPHILS % (AUTO) 68.8 % (42-78); TOTAL CELLS COUNTED % (AUTO) 100 %; WHITE BLOOD COUNT 13.9 10^3/uL (4.0-10.5)
[2017-10-06] MEDS: HEPARIN SOD (PORCINE) 5,000 UNIT/ML 1 ML SYRINGE SUBCUT SCH ×3 (06:06→21:24)
[2017-10-06 07:15] LABS: ALBUMIN 2.3 g/dL (3.5-5.0); ANION GAP 10 (5-19); BLOOD UREA NITROGEN 28 mg/dL (7-20); CALCIUM 8.1 mg/dL (8.4-10.2); CARBON DIOXIDE 25 mmol/L (22-30); CHLORIDE 104 mmol/L (98-107); GLUCOSE 87 mg/dL (75-110); PHOSPHORUS 2.9 mg/dL (2.5-4.5); POTASSIUM 3.3 mmol/L (3.6-5.0); SODIUM 139.4 mmol/L (137-145)
--- NOTE | 2017-10-06 07:26 | EKG REPORT ---
SEVERITY:- ABNORMAL ECG - ATRIAL FIBRILLATION, V-RATE 109-115 OLD ANTERIOR NM : Confirmed by: Simon Galvin MD 06-Oct-2017 07:25:05
[2017-10-06] MEDS: DOCUSATE SODIUM 100 MG CAPSULE PO SCH (10:16)
[2017-10-06] MEDS ORDERED: IPRATROPIUM/ALBUTEROL 0.5-2.5 MG/3 ML AMPUL NEB PRN (10:23)
[2017-10-06] MEDS ORDERED: GLYCERIN (ADULT) SUPP.RECT PR PRN (10:23)
[2017-10-06] MEDS ORDERED: DILTIAZEM HCL INJ 25 MG/5 ML VIAL IV ONE (10:30)
[2017-10-06] MEDS ORDERED: (PENDING PHARMACY ID) (Lisinopril [Zestril] 40 MG) PO SCH (10:30)
[2017-10-06] MEDS ORDERED: LEVALBUTEROL HCL NEB 1.25 MG/3 ML AMPUL NEB PRN (10:44)
[2017-10-06] MEDS ORDERED: HYDRALAZINE HCL INJ/PF 20 MG/1 ML SDV IV PRN (10:46)
[2017-10-06] MEDS ORDERED: LISINOPRIL 10 MG TABLET PO ONE (12:00)
[2017-10-06] MEDS: DILTIAZEM HCL 30 MG TABLET PO SCH ×3 (12:42→23:39)
[2017-10-06] MEDS ORDERED: CIPROFLOXACIN 200 MG/D5W RTU 200 MG/100 ML RTUPB IV ONE (13:00)
--- NOTE | 2017-10-06 13:26 | EKG REPORT ---
SEVERITY:- ABNORMAL ECG - ATRIAL FIBRILLATION, V-RATE 86-146 LOW VOLTAGE IN FRONTAL LEADS BORDERLINE R WAVE PROGRESSION, ANTERIOR LEADS REPOLARIZATION ABNORMALITY, PROB RATE RELATED : Confirmed by: Simon Galvin MD 06-Oct-2017 13:26:16
[2017-10-06] MEDS: IPRATROPIUM BROMIDE 0.02% NEB 0.5 MG/2.5 ML AMPUL NEB SCH ×2 (14:16→20:40)
[2017-10-06] MEDS: LEVALBUTEROL HCL NEB 1.25 MG/3 ML AMPUL NEB SCH ×2 (14:16→20:40)
[2017-10-06] MEDS: TAMSULOSIN HCL 0.4 MG CAP.SR.24H PO SCH (17:52)
--- NOTE | 2017-10-06 20:51 | PDOC PROGRESS REPORT ---
Subjective Progress Note for:: 10/06/17 Subjective:: Pseudomonas grew in the urine. Change antibiotics to ciprofloxacin. Will need to change Garcia in the near future after antibiotics have been loaded. Will schedule patient on diltiazem for his uncontrolled atrial fibrillation rate at present approximately around 120. Sitter anticoagulation in this patient. She was described as relatively bedbound in his retirement facility. Will get physical therapy's evaluation. Reason For Visit: ARF PYELONEPHRITIS, BPH W OBST, HYPERKALEMIA Physical Exam Vital Signs: Temp Pulse Resp BP Pulse Ox 98.1 F 114 H 17 130/51 H 96 10/06/17 20:17 10/06/17 20:17 10/06/17 20:17 10/06/17 20:17 10/06/17 20:17 Intake & Output 10/05/17 10/06/17 10/07/17 06:59 06:59 06:59 Intake Total 3733 3912 1463 Output Total 2350 2625 700 Balance 1383 1287 763 Weight 108 kg 110.6 kg General appearance: PRESENT: no acute distress, morbidly obese Head exam: PRESENT: atraumatic, normocephalic Eye exam: PRESENT: EOMI, PERRLA. ABSENT: nystagmus Ear exam: PRESENT: normal external ear exam. ABSENT: bleeding Mouth exam: PRESENT: moist, neck supple Throat exam: ABSENT: tonsillar exudate, tonsillogmegaly Neck exam: ABSENT: tenderness, thyromegaly, tracheal deviation Respiratory exam: ABSENT: rales, stridor, wheezes Cardiovascular exam: PRESENT: irregular rhythm, +S1, +S2, tachycardia. ABSENT: RRR Pulses: PRESENT: normal radial pulses, normal dorsalis pedis pul GI/Abdominal exam: PRESENT: normal bowel sounds, soft. ABSENT: diminished bowel sounds, rigid Extremities exam: ABSENT: calf tenderness, clubbing, joint swelling Musculoskeletal exam: PRESENT: full ROM, normal inspection. ABSENT: ambulatory Neurological exam: PRESENT: alert, oriented to person, oriented to place, oriented to time Psychiatric exam: ABSENT: agitated, flat affect Focused psych exam: ABSENT: delusional, flight of ideas, pressured speech Skin exam: PRESENT: normal color. ABSENT: mottled Results Laboratory Results: 10/06/17 04:52 10/06/17 04:52 10/06/17 10/06/17 04:52 04:52 WBC 13.9 H RBC 3.37 L Hgb 9.6 L Hct 29.4 L MCV 87 MCH 28.3 MCHC 32.5 RDW 15.2 H Plt Count 483 H Seg Neutrophils % 68.8 Lymphocytes % 17.6 Monocytes % 9.6 Eosinophils % 2.9 Basophils % 1.1 Absolute Neutrophils 9.6 H Absolute Lymphocytes 2.5 Absolute Monocytes 1.3 Absolute Eosinophils 0.4 Absolute Basophils 0.2 Sodium 139.4 Potassium 3.3 L Chloride 104 Carbon Dioxide 25 Anion Gap 10 BUN 28 H Creatinine 1.08 Est GFR ( Amer) > 60 Est GFR (Non-Af Amer) > 60 Glucose 87 Calcium 8.1 L Phosphorus 2.9 Magnesium 1.7 Albumin 2.3 L 10/03/17 10/03/17 10/03/17 06:25 06:25 14:15 Creatine Kinase 26 L 33 L CK-MB (CK-2) 1.49 Troponin I < 0.012 10/03/17 10/03/17 10/03/17 14:15 22:00 22:00 Creatine Kinase 47 L CK-MB (CK-2) 1.87 2.58 Troponin I < 0.012 < 0.012 Impressions: Acute Abdomen Series 10/03/17 00:16 IMPRESSION: Small bowel ileus pattern. Differential diagnosis includes small bowel obstruction. Chest X-Ray 10/03/17 03:29 IMPRESSION: Enteric tube. Dilated bowel. Abdomen X-Ray 10/05/17 08:00 IMPRESSION: 1. Slightly improved gaseous distention in the abdomen. 2. Worsening aeration left lower lobe. Assessment & Plan - Diagnosis (1) Urinary tract infection Qualifiers: Urinary tract infection type: site unspecified Hematuria presence: without hematuria Qualified Code(s): N39.0 - Urinary tract infection, site not specified Is this a current diagnosis for this admission?: Yes Plan: Change antibiotics to IV ciprofloxacin for positive pseudomonal growth in the urine culture. Will consider a Garcia vacation and change soon. (2) Acute renal failure Qualifiers: Acute renal failure type: unspecified Qualified Code(s): N17.9 - Acute kidney failure, unspecified Is this a current diagnosis for this admission?: Yes Plan: Resolving AK I on supportive IV fluid support. (3) Anemia Is this a current diagnosis for this admission?: Yes Plan: Continue to monitor anemia. No gross signs of blood loss. Holding any anticoagulation at present. (4) Hyperkalemia Is this a current diagnosis for this admission?: Yes Plan: Resolved with IV fluid support. (5) Ileus Is this a current diagnosis for this admission?: Yes Plan: Ileus resolving, patient's diet is being advanced. (6) Obstructive uropathy Is this a current diagnosis for this admission?: Yes Plan: Garcia in place at present. Treating urinary tract infection at present. (7) Atrial fibrillation Is this a current diagnosis for this admission?: Yes Plan: Check EKG. Scheduled dose diltiazem at present. Monitor heart rate. Hold anticoagulation given anemia at present. (8) Hypertension Is this a current diagnosis for this admission?: Yes Plan: Start lisinopril, monitor blood pressure
[2017-10-06] MEDS: MELATONIN 3 MG TABLET PO SCH (21:20)
[2017-10-06] MEDS: CIPROFLOXACIN 200 MG/D5W RTU 200 MG/100 ML RTUPB IV SCH (21:21)
[2017-10-06] MEDS: LACTOBACILLUS ACIDOPHILUS 250 MG TAB PO SCH (21:22)
[2017-10-06] MEDS: TRAMADOL HCL 50 MG TABLET PO PRN (21:22)
[2017-10-06] MEDS: ATORVASTATIN CALCIUM 40 MG TABLET PO SCH (21:22)
[2017-10-06] MEDS: TOLTERODINE TARTRATE 1 MG TABLET PO SCH (21:23)
[2017-10-07] MEDS: LEVALBUTEROL HCL NEB 1.25 MG/3 ML AMPUL NEB SCH ×4 (02:04→19:50)
[2017-10-07] MEDS: IPRATROPIUM BROMIDE 0.02% NEB 0.5 MG/2.5 ML AMPUL NEB SCH ×4 (02:04→19:51)
[2017-10-07 05:15] LABS: HEMATOCRIT 26.8 % (37.9-51.0); HEMOGLOBIN 8.9 g/dL (13.5-17.0); MEAN CORPUSCULAR HEMOGLOBIN 28.7 pg (27.0-33.4); MEAN CORPUSCULAR VOLUME 87 fl (80-97); PLATELET COUNT 501 10^3/uL (150-450); RED BLOOD COUNT 3.09 10^6/uL (4.35-5.55); RED CELL DISTRIBUTION WIDTH 15.3 % (11.5-14.0); WHITE BLOOD COUNT 15.3 10^3/uL (4.0-10.5)
[2017-10-07] MEDS: DILTIAZEM HCL 30 MG TABLET PO SCH ×3 (05:34→18:00)
[2017-10-07] MEDS: HEPARIN SOD (PORCINE) 5,000 UNIT/ML 1 ML SYRINGE SUBCUT SCH ×3 (05:35→21:16)
[2017-10-07 05:38] LABS: ALBUMIN 2.1 g/dL (3.5-5.0); ANION GAP 6 (5-19); BLOOD UREA NITROGEN 19 mg/dL (7-20); CALCIUM 8.2 mg/dL (8.4-10.2); CARBON DIOXIDE 28 mmol/L (22-30); CHLORIDE 105 mmol/L (98-107); GLUCOSE 93 mg/dL (75-110); PHOSPHORUS 2.8 mg/dL (2.5-4.5); SODIUM 139.3 mmol/L (137-145)
[2017-10-07] MEDS: POTASSIUM CHLORIDE 20 MEQ/50 ML RTU IV SCH ×2 (06:50→12:17)
[2017-10-07] MEDS ORDERED: POTASSIUM CHLORIDE 10 MEQ TABLET.SA PO ONE (07:00)
[2017-10-07] MEDS ORDERED: (PENDING PHARMACY ID) (Tolterodine Tartrate [Detrol La] 4 MG) PO SCH (08:00)
[2017-10-07] MEDS ORDERED: (PENDING PHARMACY ID) (Docusate Calcium [Stool Softener] 240 MG) PO SCH (08:00)
[2017-10-07] MEDS ORDERED: DOCUSATE SODIUM 100 MG CAPSULE PO SCH (08:00)
[2017-10-07] MEDS: LISINOPRIL 10 MG TABLET PO SCH (08:29)
[2017-10-07] MEDS: FUROSEMIDE 20 MG TABLET PO SCH (08:30)
[2017-10-07] MEDS: ASPIRIN 81 MG TABLET, ENT COATED PO SCH (08:30)
[2017-10-07] MEDS: CHOLECALCIFEROL (D3) 1,000 UNIT TABLET PO SCH (08:30)
[2017-10-07] MEDS: LACTOBACILLUS ACIDOPHILUS 250 MG TAB PO SCH ×2 (10:51→21:16)
[2017-10-07] MEDS: TOLTERODINE TARTRATE 1 MG TABLET PO SCH ×2 (10:51→21:15)
[2017-10-07] MEDS: CIPROFLOXACIN 200 MG/D5W RTU 200 MG/100 ML RTUPB IV SCH ×2 (10:51→21:13)
[2017-10-07] MEDS: DOCUSATE SODIUM 100 MG CAPSULE PO SCH (10:53)
[2017-10-07] MEDS: TAMSULOSIN HCL 0.4 MG CAP.SR.24H PO SCH (18:00)
[2017-10-07 18:56] LABS: ANION GAP 6 (5-19); BLOOD UREA NITROGEN 17 mg/dL (7-20); CALCIUM 8.3 mg/dL (8.4-10.2); CARBON DIOXIDE 29 mmol/L (22-30); CHLORIDE 104 mmol/L (98-107); GLUCOSE 93 mg/dL (75-110); POTASSIUM 3.4 mmol/L (3.6-5.0)
[2017-10-07] MEDS ORDERED: DILTIAZEM HCL 30 MG TABLET PO SCH (20:40)
--- NOTE | 2017-10-07 20:41 | PDOC PROGRESS REPORT ---
Subjective Progress Note for:: 10/07/17 Subjective:: 87-year-old male with sacral ulceration with wound VAC in place, urinary tract infection positive for pseudomonal growth, atrial fibrillation on diltiazem, bedbound in his assisted facility. Clinically the patient states that he feels much better today compared to yesterday. Will restart the patient ceftriaxone, given his elevation in his leukocytosis after stopping this. Suspect this may be treating an infection in his sacral ulceration. Continue the IV ciprofloxacin for his pseudomonal UTI. Reason For Visit: ARF PYELONEPHRITIS, BPH W OBST, HYPERKALEMIA Physical Exam Vital Signs: Temp Pulse Resp BP Pulse Ox 98.1 F 86 17 147/72 H 96 10/07/17 19:06 10/07/17 19:51 10/07/17 19:51 10/07/17 19:06 10/07/17 19:51 Intake & Output 10/06/17 10/07/17 10/08/17 06:59 06:59 06:59 Intake Total 3912 1943 1051 Output Total 2625 2050 475 Balance 1287 -107 576 Weight 110.6 kg 110.9 kg General appearance: PRESENT: no acute distress, cooperative. ABSENT: mild distress Head exam: PRESENT: atraumatic, normocephalic Eye exam: PRESENT: EOMI, PERRLA Mouth exam: PRESENT: moist, neck supple Throat exam: ABSENT: tonsillar erythema, tonsillar exudate Neck exam: PRESENT: full ROM. ABSENT: JVD, thyromegaly Respiratory exam: ABSENT: accessory muscle use, rales, rhonchi, wheezes Cardiovascular exam: PRESENT: RRR, +S1, +S2 Pulses: PRESENT: normal radial pulses, normal dorsalis pedis pul GI/Abdominal exam: PRESENT: soft. ABSENT: ascites, distended, rigid Extremities exam: ABSENT: calf tenderness, joint swelling Musculoskeletal exam: PRESENT: full ROM. ABSENT: ambulatory Neurological exam: PRESENT: alert, oriented to person, oriented to place, oriented to time, oriented to situation Psychiatric exam: ABSENT: agitated, anxious, manic Focused psych exam: ABSENT: delusional, paranoid Skin exam: PRESENT: normal color. ABSENT: mottled Results Laboratory Results: 10/07/17 04:47 10/07/17 18:25 10/07/17 10/07/17 10/07/17 04:47 04:47 18:25 WBC 15.3 H RBC 3.09 L Hgb 8.9 L Hct 26.8 L MCV 87 MCH 28.7 MCHC 33.0 RDW 15.3 H Plt Count 501 H Sodium 139.3 139.0 Potassium 3.0 L* 3.4 L Chloride 105 104 Carbon Dioxide 28 29 Anion Gap 6 6 BUN 19 17 Creatinine 0.97 0.94 Est GFR ( Amer) > 60 > 60 Est GFR (Non-Af Amer) > 60 > 60 Glucose 93 93 Calcium 8.2 L 8.3 L Phosphorus 2.8 Albumin 2.1 L 10/03/17 10/03/17 10/03/17 06:25 06:25 14:15 Creatine Kinase 26 L 33 L CK-MB (CK-2) 1.49 Troponin I < 0.012 10/03/17 10/03/17 10/03/17 14:15 22:00 22:00 Creatine Kinase 47 L CK-MB (CK-2) 1.87 2.58 Troponin I < 0.012 < 0.012 Impressions: Acute Abdomen Series 10/03/17 00:16 IMPRESSION: Small bowel ileus pattern. Differential diagnosis includes small bowel obstruction. Chest X-Ray 10/03/17 03:29 IMPRESSION: Enteric tube. Dilated bowel. Abdomen X-Ray 10/05/17 08:00 IMPRESSION: 1. Slightly improved gaseous distention in the abdomen. 2. Worsening aeration left lower lobe. Assessment & Plan - Diagnosis (1) Urinary tract infection Qualifiers: Urinary tract infection type: site unspecified Hematuria presence: without hematuria Qualified Code(s): N39.0 - Urinary tract infection, site not specified Is this a current diagnosis for this admission?: Yes Plan: Continue ciprofloxacin IV at present. Pseudomonal sensitivity growth was sensitive to this. (2) Acute renal failure Qualifiers: Acute renal failure type: unspecified Qualified Code(s): N17.9 - Acute kidney failure, unspecified Is this a current diagnosis for this admission?: Yes Plan: MARCOS has resolved. (3) Anemia Is this a current diagnosis for this admission?: Yes Plan: Check occult stool, anemia with gradual decline in hemoglobin. No gross bloody output. (4) Hyperkalemia Is this a current diagnosis for this admission?: Yes Plan: Resolved (5) Ileus Is this a current diagnosis for this admission?: Yes Plan: Improved. (6) Obstructive uropathy Is this a current diagnosis for this admission?: Yes Plan: Garcia in place, will need a Garcia vacation in the next 24-48 hours, given his infected urine. (7) Atrial fibrillation Is this a current diagnosis for this admission?: Yes Plan: titrate diltiazem to 60mg q6h for rate control. (8) Hypertension Is this a current diagnosis for this admission?: Yes Plan: Continue current medications. (9) Sacral decubitus ulcer, stage IV Is this a current diagnosis for this admission?: Yes Plan: Patient with wound VAC on. After discontinuing ceftriaxone, leukocytosis increased, will restart ceftriaxone given this may be treating sacral wound infection. - Time Time Spent with patient: 15-24 minutes - Inpatient Certification Based on my medical assessment, after consideration of the patient's comorbidities, presenting symptoms, or acuity I expect that the services needed warrant INPATIENT care.: Yes I certify that my determination is in accordance with my understanding of Medicare's requirements for reasonable and necessary INPATIENT services [42 CFR 412.3e].: Yes Medical Necessity: Need Close Monitoring Due to Risk of Patient Decompensation
[2017-10-07] MEDS: MELATONIN 3 MG TABLET PO SCH (20:43)
[2017-10-07] MEDS: ATORVASTATIN CALCIUM 40 MG TABLET PO SCH (20:43)
[2017-10-07] MEDS: TRAMADOL HCL 50 MG TABLET PO PRN (21:28)
[2017-10-07] MEDS ORDERED: CEFTRIAXONE 2 GM/D5W RTU 2 GM/50 ML RTUPB IV SCH (22:00)
[2017-10-08] MEDS: IPRATROPIUM BROMIDE 0.02% NEB 0.5 MG/2.5 ML AMPUL NEB SCH ×3 (01:03→13:44)
[2017-10-08] MEDS: LEVALBUTEROL HCL NEB 1.25 MG/3 ML AMPUL NEB SCH ×3 (01:03→13:44)
[2017-10-08] MEDS: DILTIAZEM HCL 60 MG TABLET PO SCH ×3 (01:09→11:44)
[2017-10-08 05:11] LABS: HEMATOCRIT 27.3 % (37.9-51.0); MEAN CORPUSCULAR HEMOGLOBIN 28.4 pg (27.0-33.4); MEAN CORPUSCULAR HGB CONC 33.1 g/dL (32.0-36.0); MEAN CORPUSCULAR VOLUME 86 fl (80-97); PLATELET COUNT 484 10^3/uL (150-450); RED BLOOD COUNT 3.19 10^6/uL (4.35-5.55); RED CELL DISTRIBUTION WIDTH 15.4 % (11.5-14.0); WHITE BLOOD COUNT 14.1 10^3/uL (4.0-10.5)
[2017-10-08] MEDS: HEPARIN SOD (PORCINE) 5,000 UNIT/ML 1 ML SYRINGE SUBCUT SCH ×2 (05:14→13:57)
[2017-10-08 05:46] LABS: ALBUMIN 2.2 g/dL (3.5-5.0); ANION GAP 7 (5-19); BLOOD UREA NITROGEN 15 mg/dL (7-20); CALCIUM 8.1 mg/dL (8.4-10.2); CARBON DIOXIDE 30 mmol/L (22-30); CHLORIDE 102 mmol/L (98-107); GLUCOSE 87 mg/dL (75-110); POTASSIUM 3.4 mmol/L (3.6-5.0); SODIUM 139.1 mmol/L (137-145)
[2017-10-08] MEDS: CHOLECALCIFEROL (D3) 1,000 UNIT TABLET PO SCH (08:34)
[2017-10-08] MEDS: ASPIRIN 81 MG TABLET, ENT COATED PO SCH (08:34)
[2017-10-08] MEDS: FUROSEMIDE 20 MG TABLET PO SCH (08:34)
[2017-10-08] MEDS: LISINOPRIL 10 MG TABLET PO SCH (08:34)
[2017-10-08] MEDS ORDERED: POTASSIUM CHLORIDE 10 MEQ TABLET.SA PO ONE (09:44)
[2017-10-08] MEDS ORDERED: CIPROFLOXACIN HCL 500 MG TABLET PO SCH (10:00)
[2017-10-08] MEDS: LACTOBACILLUS ACIDOPHILUS 250 MG TAB PO SCH (10:07)
[2017-10-08] MEDS: TOLTERODINE TARTRATE 1 MG TABLET PO SCH (10:07)
[2017-10-08] MEDS: DOCUSATE SODIUM 100 MG CAPSULE PO SCH (10:07)
[2017-10-08 11:42] VITALS: BP 140/51
--- NOTE | 2017-10-08 12:56 | PDOC TRANSFER SUMMARY ---
General - Admit/Disc Date/PCP Admission Date/Primary Care Provider: 10/03/17 04:33 KIRILL RUBIN, DO Discharge Date: 10/08/17 - Discharge Diagnosis (1) Urinary tract infection Is this a current diagnosis for this admission?: Yes Summary: Urine culture positive for pseudomonas. Sensitive to cipro. On Day of discharge transitioned from IV to PO Cipro 500mg daily for 4 additional days to complete 1 week course. (2) Acute renal failure Is this a current diagnosis for this admission?: Yes Summary: Presented with MARCOS, Cr 1.61 likely pre-renal etiology. Improvement with IVF. Now improved and at baseline. Good UOP. (3) Sacral decubitus ulcer, stage IV Is this a current diagnosis for this admission?: Yes Summary: Known history of sacral decubitis. Has wound vac in place. Continue at discharge. Normal would vac care to continue to SNF. Will need to discuss with PCP and wound team regarding duration of Vac. (4) Hypertension Is this a current diagnosis for this admission?: Yes Summary: At baseline, continue home medications (5) Ileus Is this a current diagnosis for this admission?: Yes Summary: Resolved. Good PO intake. No abdominal pain at discharge. - Additional Information Resuscitation Status: Do Not Resuscitate Discharge Diet: Cardiac Discharge Activity: Activity As Tolerated, Balance Activity w/Rest Prescriptions: Ciprofloxacin HCl [Cipro 500 mg Tablet] 500 mg PO DAILY 4 Days #4 tablet Hydrocodone/Acetaminophen [Wardell 5-325 mg Tablet] 1 tab PO Q12HP PRN 15 Days # 30 tablet PRN Reason: For Pain Home Medications: Acidoph/L.bulg/Bif.b/S.thermop [Selene-Bid Caplet] 1 tab PO Q12 10/06/17 Aspirin [Adult Low Dose Aspirin EC] 81 mg PO QAM 10/06/17 Atorvastatin Calcium [Lipitor 40 mg Tablet] 40 mg PO DAILY@199910/06/17 Cholecalciferol (Vitamin D3) [Vitamin D3 1000 Unit Tablet] 1,000 unit PO QAM 03/15 Docusate Calcium [Stool Softener] 240 mg PO QAM 10/06/17 Furosemide [Lasix 20 mg Tablet] 20 mg PO QAM 10/06/17 Glycerin [Adult Glycerin] 1 supp LA DAILYP PRN 10/06/17 Ipratropium/Albuterol Sulfate [Duoneb 3 ml Ampul] 3 ml NEB RTQ12 10/06/17 Ipratropium/Albuterol Sulfate [Duoneb 3 ml Ampul] 3 ml NEB RTQ4HP PRN 10/06/17 Lidocaine [Lidoderm 5% (700 mg) Transdermal Patch] 2 patch TD QAM 10/06/17 Melatonin [Melatonin 3 mg Tablet] 3 mg PO DAILY@199910/06/17 Multivit-Min/FA/Lycopen/Lutein [Centrum Silver Men Tablet] 1 tab PO QAM Nifedipine [Procardia XL 60 mg Tablet] 60 mg PO QAM 10/06/17 Polyethylene Glycol 3350 [Miralax Powder 17 gm/Packet] 17 gm PO QAM 10/06/17 Tamsulosin HCl [Flomax 0.4 mg Cap.sr] 0.4 mg PO DAILY@182910/06/17 Temazepam [Restoril 15 mg Capsule] 15 mg PO DAILY@199910/06/17 Tolterodine Tartrate [Detrol LA] 4 mg PO QAM 10/06/17 Tramadol HCl [Ultram 50 mg Tablet] 50 mg PO Q6HP PRN 10/06/17 Ciprofloxacin HCl [Cipro 500 mg Tablet] 500 mg PO DAILY 4 Days #4 tablet Hydrocodone/Acetaminophen [Wardell 5-325 mg Tablet] 1 tab PO Q12HP PRN 15 Days # 30 tablet 10/08/17 Lisinopril [Prinivil 10 mg Tablet] 40 mg PO QAM tablet 10/08/17 History of Present Illness Admission Date/PCP: 10/03/17 04:33 KIRILL RUBIN DO History of Present Illness: LAUREN CARTER is a 87 year old male with past medical history of BPH and obstructive uropathy with indwelling Garcia, atrial fibrillation, GERD, stage IV sacral decubiti and bedbound state. Patient presents from nursing facility with complaints of abdominal distention nausea and vomiting. In the emergency room is found to have acute renal failure, abdominal distention and an empty Garcia, NG tube was placed to intermittent suction resulting in greater than 500 mL of aspiration, Garcia replacement results in drainage of greater than [address] abdomen and pelvis suggests pyelonephritis without hydronephrosis. He started on empiric antibiotics IV fluids and referred to the hospitalist for admission. Cultures positive for pseudomonas and tailored based on sensitivities. Physical Exam Vital Signs: Temp Pulse Resp BP Pulse Ox 97.2 F 99 18 140/51 H 95 10/08/17 11:17 10/08/17 11:17 10/08/17 11:17 10/08/17 11:17 10/08/17 11:17 Intake & Output 10/07/17 10/08/17 10/09/17 06:59 06:59 06:59 Intake Total 1942 1997 Output Total 2049 1225 Balance -107 773 Weight 110.9 kg 110.3 kg General appearance: PRESENT: no acute distress, cooperative, obese Head exam: PRESENT: normocephalic Mouth exam: PRESENT: moist Respiratory exam: PRESENT: unlabored. ABSENT: tachypnea, wheezes Cardiovascular exam: PRESENT: irregular rhythm, +S1, +S2. ABSENT: tachycardia GI/Abdominal exam: PRESENT: normal bowel sounds, soft. ABSENT: tenderness Neurological exam: PRESENT: alert, awake, oriented to person, oriented to place , CN II-XII grossly intact Psychiatric exam: PRESENT: appropriate affect Results Laboratory Results: 10/08/17 04:47 10/08/17 04:47 10/07/17 10/08/17 10/08/17 18:25 04:47 04:47 WBC 14.1 H RBC 3.19 L Hgb 9.0 L Hct 27.3 L MCV 86 MCH 28.4 MCHC 33.1 RDW 15.4 H Plt Count 484 H Sodium 139.0 139.1 Potassium 3.4 L 3.4 L Chloride 104 102 Carbon Dioxide 29 30 Anion Gap 6 7 BUN 17 15 Creatinine 0.94 0.92 Est GFR ( Amer) > 60 > 60 Est GFR (Non-Af Amer) > 60 > 60 Glucose 93 87 Calcium 8.3 L 8.1 L Phosphorus 3.0 Albumin 2.2 L 10/03/17 06:25 Blood Blood Culture - Final NO GROWTH IN 5 DAYS 10/03/17 10/03/17 10/03/17 06:25 06:25 14:15 Creatine Kinase 26 L 33 L CK-MB (CK-2) 1.49 Troponin I < 0.012 10/03/17 10/03/17 10/03/17 14:15 22:00 22:00 Creatine Kinase 47 L CK-MB (CK-2) 1.87 2.58 Troponin I < 0.012 < 0.012 Impressions: Acute Abdomen Series 10/03/17 00:16 IMPRESSION: Small bowel ileus pattern. Differential diagnosis includes small bowel obstruction. Chest X-Ray 10/03/17 03:29 IMPRESSION: Enteric tube. Dilated bowel. Abdomen X-Ray 10/05/17 08:00 IMPRESSION: 1. Slightly improved gaseous distention in the abdomen. 2. Worsening aeration left lower lobe. Transfer Plan - Disposition Transfer Plan: [facility] Transfer back. - Time Spent with Patient Time spent with patient: Less than 30 Minutes Qualifiers - * PATIENT BEING DISCHARGED WITH ANY OF THE FOLLOWING DIAGNOSIS: No
== END 2017-10-08 15:19 | DRG 682 ==
LOC: ER 00:02 → EH 04:33 → ICU 06:02 → 3W 17:20
PROVIDERS: ADMIT Internal Medicine; ATTEND Internal Medicine
PROC: 0D9670Z Drainage of Stomach with Drainage Device, Via Natural or Artificial Opening (ICD-10-PCS; principal; 2017-10-03)
PROC: 3E0F73Z Introduction of Anti-inflammatory into Respiratory Tract, Via Natural or Artificial Opening (ICD-10-PCS; 2017-10-03)
PROC: 5A09457 Assistance with Respiratory Ventilation, 24-96 Consecutive Hours, Continuous Positive Airway Pressure (ICD-10-PCS; 2017-10-03)
DX: N17.9 Acute kidney failure, unspecified (principal); L89.154 Pressure ulcer of sacral region, stage 4; N39.0 Urinary tract infection, site not specified; K56.7 Ileus, unspecified; N13.8 Other obstructive and reflux uropathy; Z66 Do not resuscitate; N12 Tubulo-interstitial nephritis, not specified as acute or chronic; B96.5 Pseudomonas (aeruginosa) (mallei) (pseudomallei) as the cause of diseases classified elsewhere; N40.1 Benign prostatic hyperplasia with lower urinary tract symptoms; I48.91 Unspecified atrial fibrillation; K21.9 Gastro-esophageal reflux disease without esophagitis; E78.00 Pure hypercholesterolemia, unspecified; M19.90 Unspecified osteoarthritis, unspecified site; D64.9 Anemia, unspecified; I12.9 Hypertensive chronic kidney disease with stage 1 through stage 4 chronic kidney disease, or unspecified chronic kidney disease; N18.3 Chronic kidney disease, stage 3 (moderate); Z74.01 Bed confinement status; Z79.82 Long term (current) use of aspirin; Z79.899 Other long term (current) drug therapy; Z82.49 Family history of ischemic heart disease and other diseases of the circulatory system
CPT/HCPCS: 36415; 51702; 71045; 74019; 74022; 74176; 80048; 80053; 80069; 81001; 82550; 82553; 83605; 83690; 83735; 84100; 84443; 84484; 85025; 85027; 87040; 87086; 87088; 87186; 93005; 93010; 94640; 96361; 96374; 96375; 99291; G8978-GP; G8979-GP; J0610; J0696; J0744; J1644; J1815; J2270; J2405; J2543; J3480; J3490; J7030; J7620

== ENCOUNTER 2017-12-17 07:14 | Emergency (ER) | payer OTHER, MEDICARE ==
--- NOTE | 2017-12-17 07:32 | ER Document Report ---
ED General - General Chief Complaint: Blood in Catheter Stated Complaint: POSSIBLE HEMORRHAGE Time Seen by Provider: 12/17/17 07:24 TRAVEL OUTSIDE OF THE [place] IN LAST 30 DAYS: No - HPI Notes: Patient is an 87-year-old male with a history of BPH with Severino catheter placement who presents to the ED by EMS with concern of urethral bleeding status post removal of the Severino catheter this morning. The nursing facility did tell EMS that his urine in the bag was clear prior to removal, but started bleeding after the balloon was deflated and catheter removed. EMS states that there is a large blood clot at the tip of the penis. Patient states that he is otherwise been eating and drinking without any difficulties. He does have some burning with urination, but is having normal bowel movements. Denies any drug allergies. No other concerns or complaints. Denies any headache, fever, neck pain, URI, sore throat, chest pain, palpitations, syncope, cough, shortness of breath, wheeze, dyspnea, abdominal pain, nausea/vomiting/diarrhea, back pain, numbness/tingling, saddle anesthesia, muscle paralysis/weakness, or rash. - Related Data Allergies/Adverse Reactions: No Known Allergies Allergy (Verified 12/17/17 07:26) Past Medical History - Social History Smoking Status: Unknown if Ever Smoked Family History: Hypertension - Past Medical History Cardiac Medical History: Reports: Hx Atrial Fibrillation, Hx Hypercholesterolemia Renal/ Medical History: Reports: Hx Benign Prostatic Hyperplasia. Denies: Hx Peritoneal Dialysis GI Medical History: Reports: Hx Gastroesophageal Reflux Disease Musculoskeletal Medical History: Reports Hx Arthritis, Reports Hx Musculoskeletal Deformity Infectious Medical History: Reports: Hx C-Diff Past Surgical History: Reports: Hx Appendectomy - Immunizations Hx Diphtheria, Pertussis, Tetanus Vaccination: Yes Review of Systems - Review of Systems -: Yes All other systems reviewed and negative Physical Exam - Vital signs Vitals: Temp Pulse Resp BP Pulse Ox 96.8 F L 84 16 102/52 L 98 12/17/17 07:30 12/17/17 07:30 12/17/17 07:30 12/17/17 07:30 12/17/17 07:30 - Notes Notes: PHYSICAL EXAMINATION: GENERAL: Well-appearing, well-nourished and in no acute distress. LUNGS: Breath sounds clear to auscultation bilaterally and equal. No wheezes rales or rhonchi. HEART: Regular rate and rhythm without murmurs, rubs, gallops. ABDOMEN: Soft, nontender, nondistended abdomen. No guarding, no rebound. No masses appreciated. Normal bowel sounds present. No CVA tenderness bilaterally. : there is a large blood clot at the tip of the penis. Non-tender to palp of the penis, scrotum, testes. No erythema or rash. Extremities: No cyanosis, clubbing, or edema b/l. Peripheral pulses 2+. Capillary refill less than 3 seconds. NEUROLOGICAL: Normal speech, normal gait. PSYCH: Normal mood, normal affect. SKIN: Warm, Dry, normal turgor, no rashes or lesions noted. Course - Re-evaluation Re-evalutation: 12/17/17 07:[address] Sexton. We will place the severino and check blood work/urine. He will need a consult with Urology either later this week or early next week. 12/17/17 10:37 Patient is an afebrile, well-hydrated, 87-year-old male who presents to the ED bleeding status post Severino removal as well as an acute UTI. Vitals are acceptable without any significant tachycardia, tachypnea, or hypoxia. PE is otherwise unremarkable. Patient is tolerating p.o. without difficulties and is nontoxic-appearing. See lab results. CMP showed mild elevation of potassium at 5.5 and Kayexalate was given. There are no significant T waves on EKG. Keflex was given p.o. today as well. No other labs or imaging warranted at this time based on H&P. Irrigation was performed which yielded a pink tinged urine. reviewed with Dr. Sexton who is in agreement with dispo and plan. No transfer warranted at this time. Pt's presentation and symptomotology not consistent for acute appendicitis, bowel obstruction, acute cholecystitis, perforated diverticulitis, incarcerated hernia, pancreatitis, perforated ulcer, peritonitis, sepsis, testicular torsion, or other systemic emergent condition at this time. Patient is aware that his condition can change from initial presentation and he needs to monitor symptoms closely and seek medical attention if any acute changes. I will send him home with a prescription for Keflex. Recheck with your PCM in 2-3 days and schedule an appointment with urology for further evaluation and management. Return to the ED with any worsening/concerning symptoms otherwise as reviewed in discharge. Patient is in agreement. - Vital Signs Vital signs: Temp Pulse Resp BP Pulse Ox 96.8 F L 84 16 102/52 L 98 12/17/17 07:30 12/17/17 07:30 12/17/17 07:30 12/17/17 07:30 12/17/17 07:30 - Laboratory Result Diagrams: 12/17/17 08:25 12/17/17 08:25 Laboratory results interpreted by me: 12/17/17 12/17/17 12/17/17 08:25 08:25 08:25 WBC 18.9 H RBC 3.33 L Hgb 9.5 L Hct 28.7 L RDW 17.0 H Seg Neutrophils % 89.1 H Lymphocytes % 5.4 L Absolute Neutrophils 16.8 H APTT 41.1 H Potassium 5.5 H BUN 76 H Creatinine 2.46 H Est GFR ( Amer) 30 L Est GFR (Non-Af Amer) 25 L Alkaline Phosphatase 198 H Albumin 2.8 L Urine Protein Urine Glucose (UA) Urine Blood Ur Leukocyte Esterase 12/17/17 08:37 WBC RBC Hgb Hct RDW Seg Neutrophils % Lymphocytes % Absolute Neutrophils APTT Potassium BUN Creatinine Est GFR ( Amer) Est GFR (Non-Af Amer) Alkaline Phosphatase Albumin Urine Protein >=500 H Urine Glucose (UA) 50 H Urine Blood LARGE H Ur Leukocyte Esterase MODERATE H Discharge - Discharge Clinical Impression: Acute UTI (urinary tract infection), Bleeding from the urethra Urinary catheter complication Qualifiers: Encounter type: initial encounter Qualified Code(s): T83.9XXA - Unspecified complication of genitourinary prosthetic device, implant and graft, initial encounter Condition: Stable Disposition: HOME, SELF-CARE Instructions: Cephalexin ([facility]), Urinary Tract Infection ([facility]) Additional Instructions: Push fluids (i.e. water, cranberry juice) Proper hygenic technique Keep the skin clean Tylenol as needed Take medications as directed F/u with your PCM in 2-3 days for a recheck Call urologist today to schedule an appointment for further evaluation and management Return to the ED with any worsening symptoms and/or development of fever, headache, chest pain, palpitations, syncope, shortness of breath, trouble breathing, abdominal pain, n/v/d, blood in stool/urine, loss of control of bowel /bladder, urinary retention, or other worsening symptoms that are concerning to you. Prescriptions: Cephalexin Monohydrate [Keflex 500 mg Capsule] 500 mg PO TID #21 capsule Referrals: KIRILL RUBIN DO [Primary Care Provider] - Follow up tomorrow [facility] [Provider Group] - 12/19/17
[2017-12-17 08:51] LABS: ABSOLUTE NEUT (AUTO) 16.8 10^3/uL (1.7-8.2); EOSINOPHILS % (AUTO) 0.1 % (0-6); HEMATOCRIT 28.7 % (37.9-51.0); HEMOGLOBIN 9.5 g/dL (13.5-17.0); LYMPHOCYTES % (AUTO) 5.4 % (13-45); MEAN CORPUSCULAR HEMOGLOBIN 28.5 pg (27.0-33.4); MEAN CORPUSCULAR HGB CONC 33.1 g/dL (32.0-36.0); MEAN CORPUSCULAR VOLUME 86 fl (80-97); MONOCYTES % (AUTO) 5.4 % (3-13); PLATELET COUNT 285 10^3/uL (150-450); RED BLOOD COUNT 3.33 10^6/uL (4.35-5.55); SEGMENTED NEUTROPHILS % (AUTO) 89.1 % (42-78); TOTAL CELLS COUNTED % (AUTO) 100 %; WHITE BLOOD COUNT 18.9 10^3/uL (4.0-10.5)
[2017-12-17 08:58] LABS: INTERNATIONAL RATION (INR) 1.07; PROTHROMBIN TIME 14.5 SEC (11.4-15.4)
[2017-12-17 08:59] LABS: PARTIAL THROMBOPLASTIN TIME 41.1 SEC (23.5-35.8)
[2017-12-17 09:09] LABS: ALANINE AMINOTRANSFERASE 51 U/L (21-72); ALBUMIN 2.8 g/dL (3.5-5.0); ALKALINE PHOSPHATASE 198 U/L (38-126); ANION GAP 13 (5-19); ASPARTATE AMINO TRANSFERASE 36 U/L (17-59); BILIRUBIN,DIRECT 0.2 mg/dL (0.0-0.4); BILIRUBIN,TOTAL 0.2 mg/dL (0.2-1.3); BLOOD UREA NITROGEN 76 mg/dL (7-20); CALCIUM 9.1 mg/dL (8.4-10.2); CARBON DIOXIDE 24 mmol/L (22-30); CHLORIDE 101 mmol/L (98-107); GLUCOSE 107 mg/dL (75-110); POTASSIUM 5.5 mmol/L (3.6-5.0); SODIUM 138.1 mmol/L (137-145); TOTAL PROTEIN 6.9 g/dL (6.3-8.2)
[2017-12-17 09:19] LABS: APPEARANCE,URINE TURBID; BILIRUBIN,URINE NEGATIVE (NEGATIVE); COLOR,URINE RED; GLUCOSE, URINE 50 mg/dL (NEGATIVE); KETONES,URINE NEGATIVE (NEGATIVE); LEUKOCYTE ESTERASE,URINE MODERATE (NEGATIVE); NITRITE,URINE NEGATIVE (NEGATIVE); PROTEIN,URINE >=500 mg/dL (NEGATIVE); URINE SPECIFIC GRAVITY 1.015; UROBILINOGEN,URINE NEGATIVE mg/dL (<2.0)
[2017-12-17] MEDS ORDERED: SODIUM POLYSTYRENE SULFONATE 15 GM/60 ML PO ONE (09:19)
[2017-12-17] MEDS ORDERED: CEPHALEXIN 500 MG CAPSULE PO ONE (09:40)
[2017-12-17 11:14] VITALS: BP 103/49
--- NOTE | 2017-12-17 22:11 | EKG REPORT ---
SEVERITY:- ABNORMAL ECG - BASELINE ARTIFACT, RECOMMEND REPEAT EKG NONSPECIFIC INTRAVENTRICULAR CONDUCTION DELAY ABNRM R PROG, CONSIDER ASMI OR LEAD PLACEMENT : Confirmed by: Krzysztof Okeefe 17-Dec-2017 22:10:41
== END 2017-12-17 11:44 | disposition home or self-care (01) ==
LOC: ER 07:14
DX: N39.0 Urinary tract infection, site not specified (principal); T83.9XXA Unspecified complication of genitourinary prosthetic device, implant and graft, initial encounter; X58.XXXA Exposure to other specified factors, initial encounter; K21.9 Gastro-esophageal reflux disease without esophagitis; I48.91 Unspecified atrial fibrillation; E78.00 Pure hypercholesterolemia, unspecified
CPT/HCPCS: 36415; 51702; 80053; 81001; 85025; 85610; 85730; 87086; 87088; 87186; 93005; 93010; 99284